=== PATIENT | male | born 1950 | race Caucasian/White ===

== ENCOUNTER 2017-02-20 09:07 | Emergency (ER) | payer OTHER ==
--- NOTE | 2017-02-20 09:53 | EDM.PDOC ---
ED HPI GENERAL MEDICAL PROBLEM - General Chief Complaint: Chest Pain Stated Complaint: COMING FROM DIALASIS CHEST PAIN Time Seen by Provider: 02/20/17 09:36 Source of Information: Reports: Patient, RN Notes Reviewed History Limitations: Reports: No Limitations - History of Present Illness INITIAL COMMENTS - FREE TEXT/NARRATIVE: 66-year-old gentleman presents emergency department today complaint of syncopal event, he is visiting from the [facility], has a known history of end- stage renal disease secondary to kidney cancer. He had just gotten connected to the dialysis machine felt very lightheaded was about to pass out had problems with vision changes developed some chest pain he was immediately given 1600 mL of fluid in combination all of his symptoms then resolved, he was brought by EMS to the emergency department for further evaluation Anterior Chest Pain Score (Numeric/FACES): 2 - Related Data Allergies Allergy/AdvReac Type Severity Reaction Status Date / Time morphine Allergy Dizziness Verified 02/20/17 09:33 Past Medical History Cardiovascular History: Reports: High Cholesterol, Hypertension Genitourinary History: Reports: Dialysis Oncologic (Cancer) History: Reports: Renal Social & Family History - Tobacco Use Smoking Status *Q: Never Smoker ED ROS GENERAL - Review of Systems Review Of Systems: See Below Constitutional: Reports: No Symptoms HEENT: Reports: No Symptoms Respiratory: Reports: No Symptoms Cardiovascular: Reports: Chest Pain, Lightheadedness GI/Abdominal: Reports: No Symptoms : Reports: No Symptoms Musculoskeletal: Reports: No Symptoms Skin: Reports: No Symptoms Neurological: Reports: Dizziness - Physical Exam Exam: See Below Text/Narrative:: General: Male, not in any distress, alert and oriented x3 HEENT: head is atraumatic normocephalic, eyes pupils equal round reactive to light, sclera clear no conjunctivitis appreciated. Ears blocked by cerumen bilaterally. Nose no septal deviation, nares are clear, no blood present. Mouth mucosa is moist and pink no erythema or exudate noted in soft palate, tongue is midline uvula is midline, dentition is intact. Neck: Supple no thyromegaly no tracheal deviation. Nodes: Cervical nodes subclavicular nodes nontender no palpable lymphadenopathy noted. Lungs: clear to auscultation bilaterally with symmetrical respirations, no adventitious noise appreciated. CV: Regular rate and rhythm S1 and S2 appreciated 2/6 systolic ejection murmur best appreciated left sternal border Abdomen: Soft, obese, nontender, no palpable masses or organomegaly appreciated , no distention no guarding bowel sounds are present, right sided abdominal wall hernia secondary to recent surgery. Neuro: Cranial nerves II through XII grossly intact Skin: Warm and dry, intact Extremities: MANFRED hose in place Course - Vital Signs Last Recorded V/S: Last Vital Signs Temp 97.2 F 02/20/17 09:44 Pulse 54 L 02/20/17 10:55 Resp 16 02/20/17 10:55 BP 132/52 L 02/20/17 10:55 Pulse Ox 100 02/20/17 10:55 - Orders/Labs/Meds Orders: Active Orders 24 hr Category Date Time Status Cardiac Monitoring [RC] .As Directed Care 02/20/17 09:46 Active EKG Documentation Completion [RC] ASDIRECTED Care 02/20/17 09:47 Active EKG 12 Lead [EK] Stat Ther 02/20/17 09:47 Ordered Labs: Laboratory Tests 02/20/17 02/20/17 Range/Units 09:55 09:55 WBC 4.9 (4.5-11.0) K/uL RBC 3.01 L (4.30-5.90) M/uL Hgb 10.3 L (12.0-15.0) g/dL Hct 30.5 L (40.0-54.0) % MCV 101 H (80-98) fL MCH 34 H (27-31) pg MCHC 34 (32-36) % Plt Count 129 L (150-400) K/uL Neut % (Auto) 57 (36-66) % Lymph % (Auto) 26 (24-44) % [place] % (Auto) 14 H (2-6) % Eos % (Auto) 2 (2-4) % Baso % (Auto) 0 (0-1) % Sodium 138 L (140-148) mmol/L Potassium 3.7 (3.6-5.2) mmol/L Chloride 99 L (100-108) mmol/L Carbon Dioxide 31 (21-32) mmol/L Anion Gap 11.7 (5.0-14.0) mmol/L BUN 50 H (7-18) mg/dL Creatinine 3.7 H* (0.8-1.3) mg/dL Est Cr Clr Drug Dosing 20.28 mL/min Estimated GFR (MDRD) 17 L (>60) Glucose 184 H (74-106) mg/dL Calcium 8.6 (8.5-10.1) mg/dL Total Bilirubin 0.2 (0.2-1.0) mg/dL AST 19 (15-37) U/L ALT 26 (12-78) U/L Alkaline Phosphatase 141 H (46-116) U/L CK-MB (CK-2) 4.8 H (0-3.6) mg/mL Troponin I < 0.017 (0.000-0.056) ng/mL Total Protein 7.5 (6.4-8.2) g/dL Albumin 3.9 (3.4-5.0) g/dL Globulin 3.6 H (2.3-3.5) g/dL Albumin/Globulin Ratio 1.1 L (1.2-2.2) Departure - Departure Time of Disposition: 11:27 Disposition: Home, Self-Care 01 Condition: Fair Clinical Impression: Syncope Qualifiers: Syncope type: unspecified Qualified Code(s): R55 - Syncope and collapse - Discharge Information Forms: ED Department Discharge Additional Instructions: Please follow-up with your client services account manager upon return home, call or return to the emergency department with worsening of symptoms - My Orders Last 24 Hours: My Active Orders 02/20/17 09:46 Cardiac Monitoring [RC] .As Directed 02/20/17 09:47 EKG Documentation Completion [RC] ASDIRECTED EKG 12 Lead [EK] Stat - Assessment/Plan Last 24 Hours: My Active Orders 02/20/17 09:46 Cardiac Monitoring [RC] .As Directed 02/20/17 09:47 EKG Documentation Completion [RC] ASDIRECTED EKG 12 Lead [EK] Stat Plan: Assessment Acuity = acute Site and laterality = syncopal event comp came patient with known history of end -stage renal disease on dialysis, hypertension and a history of renal cancer Etiology = unclear etiology possibly related to not eating prior to dialysis as well as taking blood pressure medications prior to dialysis [place] contributed to his syncopal event Manifestations = all symptoms have now resolved he is back to his baseline Location of injury = Home Lab values = 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 platelets low at 129 consistent thrombocytopenia sodium low at 138 consistent hyponatremia creatinine elevated at 3.7 consistent with end-stage renal disease G5 D CK-MB and troponin were negative chest x-ray shows cardiomegaly but otherwise no acute process EKG demonstrates a sinus rhythm with nonspecific interval conduction delay and this is similar to EKGs produced in the ambulance Plan I did review lab work EKG and chest x-ray results with him he is been asymptomatic while in the ED I gave him options of hospital admission with further evaluation he declined instead he elected to return to home he felt he would be able to get an appointment with his client services account manager and plan for a dialysis run on Monday Patient was in agreement with the plan all questions were answered, they were instructed to return to the emergency department or call for worsening symptoms. This note was dictated using [employer] voice recognition software please call with any questions.
--- NOTE | 2017-02-20 10:19 | CR ---
Chest 1V Frontal INDICATION: Chest Pain COMPARISON: None FINDINGS: Single portable AP view of the chest. There is cardiomegaly. No focal infiltrates or ple ural effusions. No definite signs of pulmonary edema. IMPRESSION: Cardiomegaly.
[2017-02-20 10:57] VITALS: BP 132/52
== END 2017-02-20 11:35 | disposition home or self-care (01) ==
LOC: JP.ED 09:07
DX: R55 Syncope and collapse (principal); I12.0 Hypertensive chronic kidney disease with stage 5 chronic kidney disease or end stage renal disease; N18.6 End stage renal disease; E78.00 Pure hypercholesterolemia, unspecified; Z88.5 Allergy status to narcotic agent; Z85.53 Personal history of malignant neoplasm of renal pelvis
CPT/HCPCS: 36415; 71010; 71010-26; 80053; 82553; 84484; 85025; 93005; 93010; 99284; 99285-25